=== PATIENT | female | born 1985 | race American Indian/Alaskan Native ===

== ENCOUNTER 2017-01-06 03:27 | Emergency (ER) | payer OTHER ==
[2017-01-06 03:27] VITALS: BMI 54.6
[2017-01-06 03:52] VITALS: BP 132/73; RESP 18; TEMP 97.7; O2SAT 98
--- NOTE | 2017-01-06 04:21 | ED PDOC ---
HPI: CCC, URI, Sore Throat Time Seen by Provider: 01/06/17 03:49 Chief Complaint (Nursing): Cough, Cold, Congestion Chief Complaint (Provider): Cough, congestion History Per: Patient History/Exam Limitations: no limitations Have you had recent travel within the past 21 days to any of the following countries: [place], [place], [place] or [place]?: No Onset/Duration Of Symptoms: Days Current Symptoms Are (Timing): Still Present Location Of Pain: Sinus/es Sick Contacts (Context): None Associated Symptoms: Cough, Sinus Drainage, Nasal Congestion. denies: Fever Additional History Per: Patient Additional Complaint(s): The patient is a 31yo female, present to the ED for evaluation of sore throat, cough and congestion for the past two weeks. Patient reports she has a history of bronchitis and currently has a dry cough with associated chest heaviness; pt reports one episode of post-tussive vomiting this week. she reports she has been taking an albuterol pump with some relief. Pt also reports yellow nasal discharge and associated sinus pressure. She denies any fever, leg swelling, recent travel, control use. Pt denies any other medical complaints. Past Medical History Reviewed: Historical Data, Nursing Documentation, Vital Signs Vital Signs: Last Vital Signs Temp 97.7 F 01/06/17 03:47 Pulse 56 L 01/06/17 05:47 Resp 18 01/06/17 03:47 BP 132/73 01/06/17 03:47 Pulse Ox 98 01/06/17 05:47 - Medical History PMH: No Chronic Diseases - Surgical History Surgical History: Tonsillectomy, - Family History Family History: States: Unknown Family Hx - Social History Current smoker - smoking cessation education provided: No - Home Medications Home Medications: Ambulatory Orders Medication Instructions Recorded Albuterol HFA [Ventolin HFA 90 1 puff IH Q4 PRN #1 inh 06/21/16 mcg/actuation (8 g)] Azithromycin [Zithromax] 250 mg PO DAILY #1 packet 06/21/16 Fluticasone Nasal [Flonase] 1 actuation NS BID #1 bottle 06/21/16 Guaifenesin/Pseudoephedrne HCl 2 tab PO Q12 #20 ter 06/21/16 [Mucinex D 600 mg-60 mg] Albuterol HFA [Ventolin HFA 90 1 puff IH Q4 PRN #1 inhaler 01/06/17 mcg/actuation (8 g)] Amoxicillin/Clavulanate [Augmentin 1 tab PO BID #14 tab 01/06/17 875 MG-125 MG] guaiFENesin/Dextromethorphan 1 tab PO Q6 PRN #20 tab 01/06/17 [guaiFENesin/DM 600-30 mg] - Allergies Allergies/Adverse Reactions: Allergies Allergy/AdvReac Type Severity Reaction Status Date / Time No Known Allergies Allergy Verified 06/20/16 22:37 Review of Systems ROS Statement: Except As Marked, All Systems Reviewed And Found Negative Constitutional: Negative for: Fever ENT: Positive for: Nose Discharge, Nose Congestion Cardiovascular: Positive for: Other (chest heaviness) Respiratory: Positive for: Cough, Shortness of Breath Physical Exam - Reviewed Nursing Documentation Reviewed: Yes Vital Signs Reviewed: Yes - Physical Exam Appears: Positive for: Well, Non-toxic, No Acute Distress Head Exam: Positive for: ATRAUMATIC, NORMAL INSPECTION, NORMOCEPHALIC Skin: Positive for: Normal Color, Warm, DRY Eye Exam: Positive for: EOMI, Normal appearance, PERRL ENT: Positive for: Normal ENT Inspection Neck: Positive for: Normal, Supple Cardiovascular/Chest: Positive for: Regular Rate, Rhythm Respiratory: Positive for: Normal Breath Sounds. Negative for: Wheezing, Respiratory Distress Gastrointestinal/Abdominal: Positive for: Normal Exam, Soft. Negative for: Tenderness Extremity: Positive for: Normal ROM. Negative for: Pedal Edema, Deformity, Swelling Neurologic/Psych: Positive for: Alert, Oriented - ECG ECG: Positive for: Interpreted By Me, Viewed By Me ECG Rhythm: Positive for: Normal QRS, Sinus Bradycardia. Negative for: ST/T Changes Rate: 56 O2 Sat by Pulse Oximetry: 98 (RA) Pulse Ox Interpretation: Normal - Radiology X-Ray: Interpreted by Me, Viewed By Me X-Ray Interpretation: No Acute Disease Medical Decision Making Medical Decision Making: Time: 399 Impression: Sinusitis, post nasal drip, bronchitis Plan: * EKG * CXR Scribe Attestation: Documented by Martha Stiles acting as a scribe for Jacobo Trammell MD. Provider Attestation: All medical record entries made by the Scribe were at my direction and personally dictated by me. I have reviewed the chart and agree that the record accurately reflects my personal performance of the history, physical exam, medical decision making, and the department course for this patient. I have also personally directed, reviewed, and agree with the discharge instructions and disposition. Disposition - Clinical Impression Clinical Impression: Sinusitis, Bronchitis - Patient ED Disposition Is Patient to be Admitted: No Doctor Will See Patient In The: Office Counseled Patient/Family Regarding: Studies Performed, Diagnosis, Need For Followup - Disposition Referrals: [facility] [Outside] Disposition: Routine/Home Disposition Time: 05:45 Condition: GOOD Additional Instructions: Take medications as instructed. Return for worsening. Follow up with your PCP in 2-3 days. Prescriptions: Albuterol HFA [Ventolin HFA 90 mcg/actuation (8 g)] 1 puff IH Q4 PRN #1 inhaler PRN Reason: Wheezing Amoxicillin/Clavulanate [Augmentin 875 MG-125 MG] 1 tab PO BID #14 tab guaiFENesin/Dextromethorphan [guaiFENesin/DM 600-30 mg] 1 tab PO Q6 PRN #20 tab PRN Reason: Cough Instructions: Sinusitis (ED), Acute Bronchitis (ED) EMMANUELLE Risk Score for UA/NSTEMI - EMMANUELLE Risk Score Age > 64: NO 3 or more CAD Risk Factors: NO Known CAD (Stenosis greater than 50%): NO Aspirin use in past 7 days: NO Severe Angina: NO EKG ST changes greater than 0.5mm: NO Positive Cardiac Marker: NO EMMANUELLE Score: 0 % risk at 14 days of: all cause mortality, new or recurrent SC, or severe recurrent ischemia requiring urgen revascularization: 5% Wells Criteria for PE - Wells Criteria for Pulmonary Embolism Clinical Signs and Symptoms of DVT: No P.E is #1 Diagnosis, or Equally Likely: No Heart Rate >100: No Immobilization at least 3 days;Surgery previous 4 weeks: No Previous, objectively diagnosed PE or DVT: No Hemoptysis: No Malignancy w/treatment within 6 months, or palliative: No Total Score: 0
[2017-01-06 05:01] VITALS: PULSE 56
--- NOTE | 2017-01-06 09:47 | RAD ---
HISTORY: cough wheezing COMPARISON: 06/21/2016 TECHNIQUE: Chest PA and lateral FINDINGS: Lungs The interstitial markings are slightly increased and coarsened with a few scattered peribronchial cuffing changes. Rule out sequela of reactive/inflammatory airway disease or viral illness. PLEURA: No significant pleural effusion identified. No pneumothorax apparent. CARDIOVASCULAR: Normal. OSSEOUS STRUCTURES: No significant abnormalities. VISUALIZED UPPER ABDOMEN: Normal. OTHER FINDINGS: None. IMPRESSION: The interstitial markings are slightly increased and coarsened with a few scattered peribronchial cuffing changes. Rule out sequela of reactive/inflammatory airway disease or viral illness.
--- NOTE | 2017-01-06 10:42 | CARD ---
APPROVED REPORT EKG Measurement Heart [id number] <Conclusion> Sinus bradycardia Otherwise normal ECG
== END 2017-01-06 05:52 | disposition home or self-care (01) ==
LOC: H.ER 03:27
DX: J20.9 Acute bronchitis, unspecified (principal); J01.90 Acute sinusitis, unspecified

== ENCOUNTER 2017-04-20 22:02 | Emergency (ER) | payer OTHER ==
[2017-04-20 22:02] VITALS: BMI 54.6
[2017-04-20 22:12] VITALS: BP 137/49; PULSE 61; RESP 18; TEMP 97; O2SAT 98
[2017-04-20] MEDS ORDERED: Sodium Chloride 0.9% 1,000 ML IV STA (22:49)
--- NOTE | 2017-04-20 22:51 | ED PDOC ---
HPI: Back Time Seen by Provider: 04/20/17 22:19 Chief Complaint (Nursing): Back Pain Chief Complaint (Provider): Left low back pain radiating down the left leg History Per: Patient History/Exam Limitations: no limitations Onset/Duration Of Symptoms: Days Current Symptoms Are (Timing): Still Present Full Body Front + Back: 1 - Pain Description Of Injury (Context): None Severity: Moderate Pain Scale Rating Of: 6 Previous Symptoms: None Exacerbating Factor(s): Movement Additional Complaint(s): Pt reports pain, left lower back and flank for 1 week. Pt states that she had surgery to remove an ovarian cyst in January. Pt states she wants to make sure she did not have an infection. Past Medical History Reviewed: Historical Data, Nursing Documentation, Vital Signs Vital Signs: Last Vital Signs Temp 97 F L 04/20/17 22:06 Pulse 61 04/20/17 22:06 Resp 18 04/20/17 22:06 BP 137/49 L 04/20/17 22:06 Pulse Ox 98 04/20/17 22:06 - Medical History PMH: No Chronic Diseases - Surgical History Surgical History: Tonsillectomy, Other surgeries: Cyst removal - Family History Family History: States: Unknown Family Hx - Living Arrangements Living Arrangements: With Family - Social History Current smoker - smoking cessation education provided: No - Home Medications Home Medications: Ambulatory Orders Medication Instructions Recorded Albuterol HFA [Ventolin HFA 90 1 puff IH Q4 PRN #1 inh 06/21/16 mcg/actuation (8 g)] Azithromycin [Zithromax] 250 mg PO DAILY #1 packet 06/21/16 Fluticasone Nasal [Flonase] 1 actuation NS BID #1 bottle 06/21/16 Guaifenesin/Pseudoephedrne HCl 2 tab PO Q12 #20 ter 06/21/16 [Mucinex D 600 mg-60 mg] Albuterol HFA [Ventolin HFA 90 1 puff IH Q4 PRN #1 inhaler 01/06/17 mcg/actuation (8 g)] Amoxicillin/Clavulanate [Augmentin 1 tab PO BID #14 tab 01/06/17 875 MG-125 MG] guaiFENesin/Dextromethorphan 1 tab PO Q6 PRN #20 tab 01/06/17 [guaiFENesin/DM 600-30 mg] Cyclobenzaprine [Cyclobenzaprine 10 mg PO Q8H #20 tab 04/21/17 HCl] Ibuprofen [Motrin Tab] 800 mg PO Q6H PRN #20 tab 04/21/17 - Allergies Allergies/Adverse Reactions: Allergies Allergy/AdvReac Type Severity Reaction Status Date / Time No Known Allergies Allergy Verified 06/20/16 22:37 Review of Systems ROS Statement: Except As Marked, All Systems Reviewed And Found Negative Constitutional: Negative for: Fever, Chills Gastrointestinal: Negative for: Nausea, Vomiting, Abdominal Pain Genitourinary Female: Negative for: Dysuria, Frequency, Hematuria, Vaginal Discharge, Pelvic Pain Musculoskeletal: Positive for: Back Pain (Left flank) Physical Exam - Reviewed Nursing Documentation Reviewed: Yes Vital Signs Reviewed: Yes - Physical Exam Appears: Positive for: Well, Non-toxic, No Acute Distress Head Exam: Positive for: ATRAUMATIC, NORMAL INSPECTION, NORMOCEPHALIC Skin: Positive for: Normal Color, Warm, DRY Eye Exam: Positive for: Normal appearance ENT: Positive for: Normal ENT Inspection Neck: Positive for: Normal, Painless ROM Cardiovascular/Chest: Positive for: Regular Rate, Rhythm Respiratory: Positive for: CNT, Normal Breath Sounds Gastrointestinal/Abdominal: Positive for: Normal Exam, Bowel Sounds, Soft, Other ((-) CVA). Negative for: Tenderness Back: Positive for: Normal Inspection Extremity: Positive for: Normal ROM Neurologic/Psych: Positive for: Alert, Oriented - Laboratory Results Result Diagrams: 04/20/17 23:28 04/20/17 23:28 - ECG O2 Sat by Pulse Oximetry: 98 Pulse Ox Interpretation: Normal Medical Decision Making Medical Decision Making: CT normal except degenerative changes in LS. (+) hematuria - No sign of infection. Discussed repeat urine. Labs normal. Disposition - Clinical Impression Clinical Impression: Spine degeneration, Back pain - Patient ED Disposition Is Patient to be Admitted: No Counseled Patient/Family Regarding: Diagnosis, Need For Followup - Disposition Disposition: Routine/Home Disposition Time: 00:43 Condition: GOOD Prescriptions: Cyclobenzaprine [Cyclobenzaprine HCl] 10 mg PO Q8H #20 tab Ibuprofen [Motrin Tab] 800 mg PO Q6H PRN #20 tab PRN Reason: Pain Instructions: Acute Low Back Pain (ED) Forms: [employer] ([place])
[2017-04-20 23:31] LABS: HEMATOCRIT 39.9 % (34.0-47.0); MEAN CELL VOLUME 88.2 fl (81.0-99.0); MEAN CORPUSCULAR HGB CONC 32.8 g/dL (33.0-37.0); RED CELL DISTRIBUTION WIDTH 15.7 % (11.5-14.5)
[2017-04-20 23:41] LABS: ALB/GLOB RATIO 1.1 (1.0-2.1); BILIRUBIN,TOTAL 0.4 mg/dl (0.2-1.3); CALCIUM 8.6 mg/dL (8.4-10.2); POTASSIUM 4.9 MMOL/L (3.6-5.0)
--- NOTE | 2017-04-21 00:04 | CT ---
EXAM: CT Abdomen and Pelvis Without Intravenous Contrast CLINICAL HISTORY: 32 years old, female; Pain; Abdominal pain; Flank; Left; Prior surgery; Surgery date: 6+ months; Surgery type: Ovarian cyst removal as per patient; Patient HX: See phys doc; Additional info: Left flank pain, hematuria TECHNIQUE: Axial computed tomography images of the abdomen and pelvis without intravenous contrast. All CT scans at this facility use one or more dose reduction techniques, viz.: automated exposure control; ma/kV adjustment per patient size (including targeted exams where dose is matched to indication; i.e. head); or iterative reconstruction technique. Coronal and sagittal reformatted images were created and reviewed. COMPARISON: CT - ABD PELVIS IV CONTRAST ONLY 09/29/2016 2:40:36 PM FINDINGS: Lower thorax: Small hiatal hernia. ABDOMEN: Liver: Unremarkable. Gallbladder and bile ducts: Unremarkable. No calcified stones. No ductal dilation. Pancreas: Unremarkable. No ductal dilation. Spleen: Unremarkable. No splenomegaly. Adrenals: Unremarkable. No mass. Kidneys and ureters: Unremarkable. No obstructing stones. No hydronephrosis. Stomach and bowel: Unremarkable. No obstruction. Appendix: No findings to suggest acute appendicitis. PELVIS: Bladder: Unremarkable. No stones. Reproductive: Unremarkable as visualized. ABDOMEN and PELVIS: Intraperitoneal space: Unremarkable. No free air. No significant fluid collection. Bones/joints: Spinal degenerative changes, most prominent at L5 No acute fracture. No dislocation. Soft tissues: Unremarkable. Vasculature: Unremarkable. No abdominal aortic aneurysm. Lymph nodes: Unremarkable. No enlarged lymph nodes. IMPRESSION: 1. No evidence of left renal mass, renal calculus, hydronephrosis, or left ureteral calculus. 2. Remainder of findings as above.
== END 2017-04-21 01:29 | disposition home or self-care (01) ==
LOC: H.ER 22:02
DX: M54.5 Low back pain (principal); R31.9 Hematuria, unspecified
CPT/HCPCS: 74176; 80053; 81025; 85027; 96361; 96374; 99283; J1885; J7040

== ENCOUNTER 2017-08-22 22:32 | Emergency (ER) | payer OTHER ==
[2017-08-22 22:32] VITALS: BMI 48.2
[2017-08-22 22:39] VITALS: BP 100/85; PULSE 85; RESP 16
[2017-08-22] MEDS ORDERED: Albuterol-Ipratrop 3 mg / 0.5 (3 ml) UD INH STA (23:13)
[2017-08-22 23:16] VITALS: TEMP 98.8; O2SAT 98
--- NOTE | 2017-08-22 23:50 | ED PDOC ---
HPI: SOB/CHF/COPD Time Seen by Provider: 08/22/17 22:58 Chief Complaint (Nursing): Shortness Of Breath Chief Complaint (Provider): Shortness Of Breath History Per: Patient History/Exam Limitations: no limitations Onset/Duration Of Symptoms: Days (x 3) Current Symptoms Are (Timing): Still Present Additional Complaint(s): 32 year old female with a past medical history of bronchitis and bronchial asthma presents to the ED complaining of cough onset 3 days ago. Patient reports a non productive cough as well as a fullness in sinuses and congestion with a subjective fever on Sunday. Also complains of shortness of breath on exertion in between job sites. Her daughter was recently diagnosed with viral syndrome. Was previously seen here and tested for the flu which was negative. Denies leg swelling, vomiting diarrhea, or rash. PMD: none provided Past Medical History Vital Signs: Last Vital Signs Temp 98.8 F 08/22/17 23:16 Pulse 85 08/22/17 22:38 Resp 16 08/22/17 23:11 BP 100/85 08/22/17 22:38 Pulse Ox 98 08/23/17 00:03 - Medical History PMH: Anxiety, Bronchitis, Depression Other PMH: Bronchial asthma - Surgical History Surgical History: Tonsillectomy, Other surgeries: Ovarian cyst removal - Family History Family History: States: Unknown Family Hx - Social History Current smoker - smoking cessation education provided: No (denies tobacco but reports lifetime of second hadn smoke from her mother ) - Immunization History Hx Tetanus Toxoid Vaccination: No Hx Influenza Vaccination: No Hx Pneumococcal Vaccination: No - Home Medications Home Medications: Ambulatory Orders Medication Instructions Recorded Ca/Cholecalciferol/Fe/Folic 1 05/14/14 [Basic's Vitamins] Clotrimazole [Clotrimazole-7] 1 tab VG DAILY #7 cre 05/15/14 Nitrofurantoin Macrocrystals 1 cap PO BID #14 cap 06/27/14 [Macrobid] Albuterol HFA [Ventolin HFA 90 1 puff IH Q4 PRN #1 inh 06/21/16 mcg/actuation (8 g)] Azithromycin [Zithromax] 250 mg PO DAILY #1 packet 06/21/16 Fluticasone Nasal [Flonase] 1 actuation NS BID #1 bottle 06/21/16 Guaifenesin/Pseudoephedrne HCl 2 tab PO Q12 #20 ter 06/21/16 [Mucinex D 600 mg-60 mg] Albuterol HFA [Ventolin HFA 90 1 puff IH Q4 PRN #1 inhaler 01/06/17 mcg/actuation (8 g)] Amoxicillin/Clavulanate [Augmentin 1 tab PO BID #14 tab 01/06/17 875 MG-125 MG] guaiFENesin/Dextromethorphan 1 tab PO Q6 PRN #20 tab 01/06/17 [guaiFENesin/DM 600-30 mg] Cyclobenzaprine [Cyclobenzaprine 10 mg PO Q8H #20 tab 04/21/17 HCl] Ibuprofen [Motrin Tab] 800 mg PO Q6H PRN #20 tab 04/21/17 Albuterol HFA [Ventolin HFA 90 2 puff IH Q4H PRN #1 inh 08/23/17 mcg/actuation (8 g)] Oseltamivir [Tamiflu] 75 mg PO BID #10 cap 08/23/17 - Allergies Allergies/Adverse Reactions: Allergies Allergy/AdvReac Type Severity Reaction Status Date / Time No Known Allergies Allergy Verified 08/22/17 22:38 Review of Systems ROS Statement: Except As Marked, All Systems Reviewed And Found Negative (as per HPI otherwise negative) ENT: Positive for: Nose Congestion Respiratory: Positive for: Cough, Shortness of Breath Gastrointestinal: Negative for: Vomiting, Diarrhea Musculoskeletal: Negative for: Leg Pain (swelling) Skin: Negative for: Rash - ECG O2 Sat by Pulse Oximetry: 98 (RA) Pulse Ox Interpretation: Normal Medical Decision Making Medical Decision Making: Time: 23:19 Impression: influenza like illness Differentials include: PNA, viral syndrome, asthma exacerbation Initial Plan: --Urine preg --Chest x-ray --Duoneb 3 ml INH --Peak flow pre/post --Influenza AB Scribe Attestation: Documented by Zita Francis, acting as a scribe for Evelyn Ribeiro MD. Provider Scribe Attestation: All medical record entries made by the Scribe were at my direction and personally dictated by me. I have reviewed the chart and agree that the record accurately reflects my personal performance of the history, physical exam, medical decision making, and the department course for this patient. I have also personally directed, reviewed, and agree with the discharge instructions and disposition. Disposition - Clinical Impression Clinical Impression: Bronchospasm, Influenza-like illness Counseled Patient/Family Regarding: Studies Performed, Diagnosis, Need For Followup, Rx Given - Disposition Referrals: [facility] [Outside] - 08/23/17 (CALL IN THE MORNING TO SETUP FOLLOWUP APPOINTMENT IN 2-3 DAYS) Disposition Time: 01:13 Condition: STABLE Prescriptions: Albuterol HFA [Ventolin HFA 90 mcg/actuation (8 g)] 2 puff IH Q4H PRN #1 inh PRN Reason: ASTHMA Oseltamivir [Tamiflu] 75 mg PO BID #10 cap Instructions: Bronchospasm (ED), Influenza (ED) Forms: [facility] ED School/Work Excuse - POA Present On Arrival: None
[2017-08-23] MEDS ORDERED: Albuterol-Ipratrop 3 mg / 0.5 (3 ml) UD INH STA (01:11)
[2017-08-23] MEDS ORDERED: Albuterol-Ipratrop 3 mg / 0.5 (3 ml) UD ONE (01:24)
--- NOTE | 2017-08-23 10:00 | RAD ---
HISTORY: sob cough COMPARISON: Chest radiograph dated 01/06/2017. TECHNIQUE: Chest PA and lateral FINDINGS: LUNGS: No active pulmonary disease. PLEURA: No significant pleural effusion identified. No pneumothorax apparent. CARDIOVASCULAR: Normal. OSSEOUS STRUCTURES: No significant abnormalities. VISUALIZED UPPER ABDOMEN: Normal. OTHER FINDINGS: None. IMPRESSION: No active disease.
== END 2017-08-23 01:53 | disposition home or self-care (01) ==
LOC: H.ER 22:32
DX: J98.01 Acute bronchospasm (principal); J11.1 Influenza due to unidentified influenza virus with other respiratory manifestations; F32.9 Major depressive disorder, single episode, unspecified; F41.9 Anxiety disorder, unspecified

== ENCOUNTER 2018-02-12 17:26 | Emergency (ER) | payer OTHER ==
[2018-02-12 17:27] VITALS: BMI 48.2
--- NOTE | 2018-02-12 18:25 | ED PDOC ---
HPI: Back Time Seen by Provider: 02/12/18 18:00 Chief Complaint (Nursing): Abdominal Pain Chief Complaint (Provider): back pain History Per: Patient History/Exam Limitations: no limitations Onset/Duration Of Symptoms: Persistent (x1 week) Current Symptoms Are (Timing): Still Present Additional Complaint(s): 33 year old female presents to the ED with complaints of left lower back pain that radiates to her abdomen and left leg, onset of 1 week. She reports associated numbness, fatigue, incontinence, nausea, urine frequency and diarrhea (3-4/daily). She denies any fever, chills, vomiting, painful urination , recent travel or taking pain medication for relief. Of note, patient states that she had a recent yeast infection prior to her menses, in which, she took OTC Monistat. LMP: 02/07/18. PMD: none provided Past Medical History Reviewed: Historical Data, Nursing Documentation, Vital Signs Vital Signs: Last Vital Signs Temp 98.4 F 02/12/18 17:53 Pulse 62 02/12/18 17:53 Resp 18 02/12/18 17:53 BP 107/67 02/12/18 17:53 Pulse Ox 99 02/12/18 17:53 - Medical History PMH: Anxiety, Bronchitis, Depression - Surgical History Surgical History: Tonsillectomy, (x1) Other surgeries: right ovary cyst removed 01/2017 - Family History Family History: States: Unknown Family Hx - Immunization History Hx Tetanus Toxoid Vaccination: No Hx Influenza Vaccination: No Hx Pneumococcal Vaccination: No - Home Medications Home Medications: Ambulatory Orders Medication Instructions Recorded Ca/Cholecalciferol/Fe/Folic 1 05/14/14 [Basic's Vitamins] Clotrimazole [Clotrimazole-7] 1 tab VG DAILY #7 cre 05/15/14 Nitrofurantoin Macrocrystals 1 cap PO BID #14 cap 06/27/14 [Macrobid] Albuterol HFA [Ventolin HFA 90 1 puff IH Q4 PRN #1 inh 06/21/16 mcg/actuation (8 g)] Azithromycin [Zithromax] 250 mg PO DAILY #1 packet 06/21/16 Fluticasone Nasal [Flonase] 1 actuation NS BID #1 bottle 06/21/16 Guaifenesin/Pseudoephedrne HCl 2 tab PO Q12 #20 ter 06/21/16 [Mucinex D 600 mg-60 mg] Albuterol HFA [Ventolin HFA 90 1 puff IH Q4 PRN #1 inhaler 01/06/17 mcg/actuation (8 g)] Amoxicillin/Clavulanate [Augmentin 1 tab PO BID #14 tab 01/06/17 875 MG-125 MG] guaiFENesin/Dextromethorphan 1 tab PO Q6 PRN #20 tab 01/06/17 [guaiFENesin/DM 600-30 mg] Ibuprofen [Motrin Tab] 800 mg PO Q6H PRN #20 tab 04/21/17 Albuterol HFA [Ventolin HFA 90 2 puff IH Q4H PRN #1 inh 08/23/17 mcg/actuation (8 g)] Oseltamivir [Tamiflu] 75 mg PO BID #10 cap 08/23/17 Cyclobenzaprine [Cyclobenzaprine 10 mg PO Q8H #15 tab 02/12/18 HCl] Naproxen 500 mg PO BID #20 tab 02/12/18 - Allergies Allergies/Adverse Reactions: Allergies Allergy/AdvReac Type Severity Reaction Status Date / Time No Known Allergies Allergy Verified 02/12/18 17:52 Review of Systems ROS Statement: Except As Marked, All Systems Reviewed And Found Negative Constitutional: Positive for: Malaise (fatigue). Negative for: Fever, Chills Gastrointestinal: Positive for: Nausea, Abdominal Pain (lower left), Diarrhea. Negative for: Vomiting Genitourinary Female: Positive for: Frequency, Incontinence. Negative for: Dysuria, Hematuria Musculoskeletal: Positive for: Back Pain (lower left), Leg Pain (left-sided) Neurological: Positive for: Numbness (left leg) Physical Exam - Reviewed Nursing Documentation Reviewed: Yes Vital Signs Reviewed: Yes - Physical Exam Appears: Positive for: Well, Non-toxic, No Acute Distress Head Exam: Positive for: ATRAUMATIC, NORMAL INSPECTION, NORMOCEPHALIC Skin: Positive for: Normal Color Eye Exam: Positive for: Normal appearance, EOMI, PERRL ENT: Positive for: Normal ENT Inspection Neck: Positive for: Normal Cardiovascular/Chest: Positive for: Regular Rate, Rhythm Respiratory: Positive for: Normal Breath Sounds. Negative for: Respiratory Distress Gastrointestinal/Abdominal: Positive for: Soft, Tenderness (LLQ), Other ( morbidly obese) Back: Positive for: Vertebral Tenderness (lower left, paraspinal). Negative for : L CVA Tenderness, R CVA Tenderness Extremity: Positive for: Normal ROM (upper/lower) Neurologic/Psych: Positive for: Alert, Oriented. Negative for: Motor/Sensory Deficits - Laboratory Results Result Diagrams: 02/12/18 19:08 02/12/18 19:08 Urine POC: Negative - ECG O2 Sat by Pulse Oximetry: 99 (RA) Pulse Ox Interpretation: Normal - Progress ED Course And Treament: Time: 2129 --Labs reviewed: no significant abnormality. Time: 2140 --CT ABD/pelvis FINDINGS: Lung bases: Unremarkable. No mass. No consolidation. ABDOMEN: Liver: Hepatomegaly. Gallbladder and bile ducts: Unremarkable. No calcified stones. No ductal dilation. Pancreas: Unremarkable. No ductal dilation. Spleen: Unremarkable. No splenomegaly. Adrenals: Unremarkable. No mass. Kidneys and ureters: Unremarkable. No solid mass. No hydronephrosis. Stomach and bowel: Unremarkable. No dilated bowel loops. PELVIS: Appendix: No findings to suggest acute appendicitis. Bladder: Unremarkable. Reproductive: Unremarkable as visualized. ABDOMEN and PELVIS: Intraperitoneal space: Unremarkable. No free air. No significant fluid collection. Bones/joints: No acute fracture. No dislocation. Soft tissues: Unremarkable. Vasculature: Unremarkable. No abdominal aortic aneurysm. Lymph nodes: Unremarkable. No enlarged lymph nodes. IMPRESSION: Hepatomegaly. Re-evaluation Time: 22:03 Condition: Re-examined, Improved Medical Decision Making Medical Decision Making: Initial Impression: Left lower back pain; LLQ pain Differential Diagnosis: Renal colic; UTI; diverticulitis; lumbar radiculopathy Initial Plan: * CT ABD/pelvis with IV contrast * BMP * Urine * Urine dipstick * CBC * Toradol 30mg IVP Scribe Attestation: Documented by Dina Ruiz, acting as a scribe for Jacobo Trammell MD Provider Scribe Attestation: All medical record entries made by the Scribe were at my direction and personally dictated by me. I have reviewed the chart and agree that the record accurately reflects my personal performance of the history, physical exam, medical decision making, and the department course for this patient. I have also personally directed, reviewed, and agree with the discharge instructions and disposition. Disposition - Clinical Impression Clinical Impression: Back pain, Leg pain, Abdominal pain - Patient ED Disposition Is Patient to be Admitted: No Doctor Will See Patient In The: Office Counseled Patient/Family Regarding: Studies Performed, Diagnosis, Need For Followup - Disposition Referrals: [facility] [Outside] Disposition: Routine/Home Disposition Time: 22:04 Condition: GOOD Additional Instructions: Take your medications as instructed. Follow up with your PCP in 2-3 days. Prescriptions: Cyclobenzaprine [Cyclobenzaprine HCl] 10 mg PO Q8H #15 tab Naproxen 500 mg PO BID #20 tab Instructions: Low Back Pain (DC), Acute Abdomen (Belly Pain), Adult (DC)
[2018-02-12 19:10] LABS: BASO # 0.1 K/uL (0.0-0.2); BASO % 1.3 % (0.0-2.0); EOS # 0.2 K/uL (0.0-0.7); EOS % 2.1 % (0.0-4.0); HEMOGLOBIN 13.8 g/dL (12.0-16.0); LYMPH # 2.2 K/uL (1.0-4.3); LYMPH % 31.3 % (20.0-40.0); MEAN CORPUSCULAR HEMOGLOBIN 29.5 pg (27.0-31.0); MEAN CORPUSCULAR HGB CONC 33.5 g/dL (33.0-37.0); MEAN PLATELET VOLUME 10.2 fl (7.2-11.7); MONO # 0.5 K/uL (0.0-0.8); MONO % 7.4 % (0.0-10.0); NEUT # 4.1 K/uL (1.8-7.0); NEUT % 57.9 % (50.0-75.0); RBC 4.69 Mil/uL (3.80-5.20); RED CELL DISTRIBUTION WIDTH 15.6 % (11.5-14.5); WHITE BLOOD COUNT 7.1 K/uL (4.8-10.8)
[2018-02-12 19:20] LABS: BLOOD UREA NITROGEN 15 mg/dl (7-17); CALCIUM 8.9 mg/dL (8.4-10.2); GFR AFRICAN-AMERICAN > 60; GFR NON-AFRICAN AMERICAN > 60
[2018-02-12] MEDS ORDERED: Sodium Chloride 0.9% 50 ML IV ONE (20:26)
[2018-02-12] MEDS ORDERED: Iohexol 300 100 ML IJ ONE (20:26)
[2018-02-12 22:18] VITALS: BP 126/71; PULSE 73; RESP 15; TEMP 98.7; O2SAT 97
--- NOTE | 2018-02-13 10:56 | CT ---
Date of service: 02/12/2018 PROCEDURE: CT Abdomen and Pelvis with contrast HISTORY: left lower back pain LLQ pain as per prior CT report history prior ovarian cyst removal -which side not specified COMPARISON: 04/20/2017 TECHNIQUE: Contrast dose: 100 mL of Omnipaque 300 Radiation dose: Total exam DLP = 907 mGy-cm. This CT exam was performed using one or more of the following dose reduction techniques: Automated exposure control, adjustment of the mA and/or kV according to patient size, and/or use of iterative reconstruction technique. FINDINGS: LOWER THORAX: Unremarkable. LIVER: Mild diffuse fatty infiltration. Liver appears prominent - however patient's body habitus is large this maybe proportion to that body habitus No gross lesion or ductal dilatation. GALLBLADDER AND BILE DUCTS: Unremarkable. PANCREAS: Unremarkable. No gross lesion or ductal dilatation. SPLEEN: Unremarkable. ADRENALS: Unremarkable. No mass. KIDNEYS AND URETERS: Unremarkable. No hydronephrosis. No solid mass. VASCULATURE: Unremarkable. No aortic aneurysm. BOWEL: Rectosigmoid scattered diverticulosis redundant colon segment here. No diverticulitis. No obstruction. No gross mural thickening. APPENDIX: Appendix not identified with certainty. No pericecal inflammatory changes. PERITONEUM: Unremarkable. No free fluid. No free air. LYMPH NODES: Unremarkable. No enlarged lymph nodes. BLADDER: Distended but otherwise unremarkable P REPRODUCTIVE: 4.4 x 2.7 cm hypodensity projects along the left anterolateral uterine fundal aspect this appearance has had slight units most compatible with probable ovarian cystic changes in size and appearance is unchanged with the 04/20/2017 study. The right ovary is not identified. Although an exophytic sub serosal fibroid can sometimes simulate this. The current Hounsfield units do not the suggested this. BONES: No acute fracture. Sclerotic changes of the L5 and S1 vertebrae intervening disc space narrowing benign discogenic endplate changes are compatible with this. OTHER FINDINGS: None. IMPRESSION: The anterior left hemipelvic 4.4 x 2.7 cm hypodensity contiguous with the left anterolateral uterine fundal border is compatible with a left ovary. Consider ultrasound to assess this- - this may be problematic given large body habitus. However the high in anterior position of it may allow for this. This appearance is stable since 2017. Right ovary not visualized- history of ovarian cyst removal noted above this may be that which occurred on the right side. Clinical correlation recommended. Rectosigmoid diverticulosis without diverticulitis. Mild colonic redundancy. No hydro nephrosis or hydroureter. No obstructing urolithiasis. Borderline prominence to the liver -large body habitus noted. Hepatic steatosis also suggested. The liver findings are Concordant results (preliminary interpretation) provided by [facility]. Additional findings regarding probable left high an anterior positioned ovary are as referenced above.
== END 2018-02-12 22:35 | disposition home or self-care (01) ==
LOC: H.ER 17:26
DX: M54.9 Dorsalgia, unspecified (principal); R10.9 Unspecified abdominal pain; N83.201 Unspecified ovarian cyst, right side; K57.90 Diverticulosis of intestine, part unspecified, without perforation or abscess without bleeding
CPT/HCPCS: 74177; 80048; 81025; 85025; 96374; 99284; J1885; Q9967